=== PATIENT | female | born 1945 | race Hispanic/Latino ===

== ENCOUNTER 2016-08-21 09:17 | Outpatient (CLI) | payer MEDICARE ==
--- NOTE | 2016-08-21 15:16 | Mammography Report ---
BILATERAL DIGITAL SCREENING MAMMOGRAM with CAD : 08/21/16 09:17:00 CLINICAL: Routine screening.Previous left benign surgical biopsy. COMPARISON:01/14/15 FINDINGS: The breasts are heterogeneously dense, which may obscure small masses.Moderate skin thickening of the breasts is not significantly changed compared to prior exams. Bilateral benign calcifications. Left upper outer surgical clips. IMPRESSION: No mammographic evidence of malignancy. BI-RADS CATEGORY: 2 -- Benign RECOMMENDATION: Routine mammographic screening in one year. COMMENT: Patient follow-up letters are generated by our [employer] application.
== END 2016-08-21 09:18 | disposition home or self-care (01) ==
LOC: SPVWC 09:17
PROVIDERS: ATTEND Obstetrics & Gynecology
DX: Z12.31 Encounter for screening mammogram for malignant neoplasm of breast (principal)
CPT/HCPCS: 77067; G0202

== ENCOUNTER 2016-09-17 10:21 | Outpatient (CLI) | payer MEDICARE ==
--- NOTE | 2016-09-17 11:21 | Ultrasound Report ---
LEFT BREAST ULTRASOUND: 09/17/16 10:21:00 CLINICAL: A large left axillary mass which has developed over the last several weeks. COMPARISON: 08/21/16 mammogram FINDINGS: Ultrasound of the left breast(including all four quadrants and the retroareolar area) was performed and demonstrated normal fibroglandular and fatty structures. No mass, cyst or shadowing of the breast. Ultrasound of the left axilla demonstrated a single oval mass of the axilla measuring 7.6 x 7.2 x 5.5 cm. It has a relatively anechoic center with a thickened wall. The anterior wall is thickened and irregular and measures 12.0 mm. It is nontender and there are no skin changes. No skin discoloration or connor inflammatory changes. IMPRESSION: 1. A 7.6 cm axillary mass. The differential includes a lymph node involved by either tumor or infection, abscess which may or may not be associated with a sebaceous cyst and large benign sebaceous cyst with or without infection. 2. Otherwise negative left breast ultrasound. BI-RADS 4--suspicious RECOMMENDATION: Return for an ultrasound-guided needle aspiration and biopsy of the left axillary mass. I discussed the findings and the recommendation for needle aspiration and core biopsy with the patient at the time of the examination.
== END 2016-09-17 10:22 | disposition home or self-care (01) ==
LOC: SPVWC 10:21
PROVIDERS: ATTEND Nurse Practitioner Gerontology
DX: R22.9 Localized swelling, mass and lump, unspecified (principal)

== ENCOUNTER 2016-09-25 10:17 | Outpatient (CLI) | payer MEDICARE ==
--- NOTE | 2016-09-25 15:32 | Ultrasound Report ---
ULTRASOUND GUIDED ASPIRATION AND VACUUM ASSISTED ULTRASOUND BIOPSY WITH CLIP PLACEMENT LEFT BREAST : 09/25/16 10:17:00 CLINICAL: A cystic axillary tail/axillary mass. It is difficult to determine by previous imaging whether this is a breast mass or an axillary ike mass. COMPARISON: 09/17/16 left breast and axillary ultrasound FINDINGS: The procedure was explained to the patient and informed consent was obtained. Ultrasound demonstrated the previously described cystic axillary tail/axillary mass. The skin was cleansed with Betadine and anesthetized with 1% lidocaine. A 20-gauge needle was introduced into the left axillary tail/axillary mass with ultrasound guidance. 160cc of yellow fluidwas removed. The fluid became blood-tinged toward the end of the procedure. The fluid was placed in Cytolyte and sent to the lab for analysis to include Gram stain and culture. Vacuum-assisted needle core biopsy of the wall of the cystic mass was performed then through a small dermatotomy using ultrasound guidance, 2% lidocaine with epinephrine for deep anesthesia and a 13 gauge Mammotome Elite biopsy probe. Multiple cores were obtained from the wall of the cystic mass and placed in formalin. A localizer clip was deployed within the lesion. A moderate size hematoma was observed post biopsy but hemostasis was achieved with pressure. A sterile dressing dressing was applied. The patient tolerated the procedure well and there were no apparent complications. She was discharged in good condition and was given wound care and followup instructions. IMPRESSION: Uncomplicated ultrasound-guided aspiration and ultrasound guided vacuum-assisted core biopsy.
== END 2016-09-25 10:18 | disposition home or self-care (01) ==
LOC: SPVWC 10:17
PROVIDERS: ATTEND Nurse Practitioner Gerontology
DX: N63 Unspecified lump in breast (principal); R22.9 Localized swelling, mass and lump, unspecified
CPT/HCPCS: 19000; 19083; 87116; 88305; A4648; 88112; 88342